=== PATIENT | male | born 1970 | race African-American/Black ===

== ENCOUNTER 2023-12-01 20:09 | Emergency (ER) | payer MEDICAID ==
[~2023-12-01] VITALS: Ht 180.3 cm; Wt 82.0 kg
[2023-12-01 21:48] VITALS: BP 126/86; PULSE 78; RESP 17; TEMP 98.1; O2SAT 98
[2023-12-01] MEDS ORDERED: ACET-2708 MT (23:43)
[2023-12-01] MEDS ORDERED: IBUP-2028 MT (23:43)
[2023-12-01] MEDS ORDERED: ACETAMINOPHEN 325MG TABLET PO ONE (23:45)
[2023-12-01] MEDS ORDERED: IBUPROFEN 400MG TABLET PO ONE (23:45)
== END 2023-12-02 05:49 | disposition home or self-care (01) ==
LOC: ER 22:09
DX: M54.42 Lumbago with sciatica, left side (principal)
CPT/HCPCS: 99282; Z7610; 99281

== ENCOUNTER 2025-08-13 04:55 | Emergency (ER) | payer MEDICAID ==
[~2025-08-13] VITALS: Ht 180.3 cm; Wt 84.0 kg
[~2025-08-13 04:55] MED LIST: ACET-2708 MT; IBUP-2028 MT
[2025-08-13 05:12] VITALS: O2SAT 100
[2025-08-13] MEDS ORDERED: ALBU18HF2 IH (05:51)
[2025-08-13 06:02] VITALS: BP 143/83; PULSE 62; RESP 18; TEMP 36.7; O2SAT 98
== END 2025-08-13 06:17 | disposition home or self-care (01) ==
LOC: ER 04:55
DX: J02.9 Acute pharyngitis, unspecified (principal); R05.9 Cough, unspecified
CPT/HCPCS: 71045; 99283